=== PATIENT | female | born 1960 | race African-American/Black ===

== ENCOUNTER 2018-12-15 12:03 | Inpatient (IN) ==
[2018-12-15] MEDS ORDERED: Ipratropium/Albuterol Neb 3 ML IH ONE (12:12)
[2018-12-15] MEDS ORDERED: *HR* LORazepam 2 MG/ML VIAL IVP ONE (12:21)
[2018-12-15] MEDS ORDERED: Nitroglycerin 0.4 MG TAB.SUBL SL STA (12:46)
--- NOTE | 2018-12-15 12:47 | Emergency Department Note ---
Disposition Clinical Impression: Congestive heart failure Qualifiers: Heart failure type: unspecified Heart failure chronicity: acute on chronic Qualified Code(s): I50.9 - Heart failure, unspecified Disposition: Admitted As Inpatient Condition: Serious Referrals: NONE,PCP [Primary Care Provider] - Forms: ED Satisfaction Letter SOB HPI - General Chief Complaint: ED Shortness of Breath/Dyspnea Stated Complaint: ABY Time Seen by Provider: 12/15/18 12:08 Source: patient, EMS Nursing Notes Reviewed: Yes Vital Signs Reviewed: Yes - Related Data Home Medications Medication Instructions Recorded Confirmed Esomeprazole Magnesium [Nexium] 40 mg PO BID 05/14/16 10/30/18 Estradiol [Estrace] 1 mg PO DAILY 05/14/16 10/30/18 Furosemide [Lasix] 40 mg PO DAILY 05/14/16 10/30/18 SitaGLIPtin [Januvia] 100 mg PO DAILY #0 05/14/16 10/30/18 Docusate Sodium [Dok] 100 mg PO DAILY 10/30/18 10/30/18 Gabapentin [Neurontin] 600 mg PO TID 10/30/18 10/30/18 GlipiZIDE XL (24 HR) [Glucotrol XL] 10 mg PO DAILY 10/30/18 10/30/18 Losartan Potassium 100 mg PO DAILY 10/30/18 10/30/18 PARoxetine HCl [Paroxetine HCl] 10 mg PO DAILY 10/30/18 10/30/18 Tramadol HCl [Ultram] 100 mg PO TID PRN 10/30/18 10/30/18 Trazodone HCl 100 mg PO HS 10/30/18 10/30/18 Umeclidinium [place] [Incruse 1 puff IH DAILY 10/30/18 10/30/18 Ellipta] Previous Rx's Medication Instructions Recorded Atorvastatin [Lipitor] 40 mg PO HS #30 tablet 05/14/16 Blood Pressure Test Kit [Blood 1 each MC BID #1 kit 11/01/18 Pressure Kit] Clopidogrel [Plavix] 75 mg PO DAILY #30 tablet 11/01/18 Ipratropium/Albuterol Neb [Duoneb] 3 ml IH [id number] #10 inhsol 11/01/18 Nebulizer and Compressor [Ombra 1 each MC PRN PRN #1 each 11/01/18 Compressor System] Allergies Allergy/AdvReac Type Severity Reaction Status Date / Time steroids Allergy See Uncoded 10/30/18 10:48 Comments Past Medical History - Past Medical History Medical history: Reports: diabetes, GERD, hyperlipidemia, hypertension Surgical history: Reports: , cholecystectomy, herniorrhaphy, hysterectomy Psychiatric history: Reports: no psych history - Social History Smoking Status: Former smoker Smokeless Tobacco Status: No Alcohol use: Reports: occasionally Drug use: Reports: none Physical Exam - General General appearance: alert Course Vital Signs Temperature 97.7 F 12/15/18 12:09 Pulse Rate 131 12/15/18 12:09 Respiratory Rate 38 12/15/18 12:09 Blood Pressure 161/123 12/15/18 12:09 O2 Sat by Pulse Oximetry 78 12/15/18 12:09 Temperature 97.7 F 12/15/18 12:09 Pulse Rate 104 12/15/18 16:03 Respiratory Rate 24 12/15/18 16:03 Blood Pressure 148/94 12/15/18 16:03 O2 Sat by Pulse Oximetry 97 12/15/18 16:03 Oxygen Delivery Oxygen Delivery Nasal Cannula Shortness of Breath/Dyspnea - [facility] Narrative Medical decision making narrative: Chest X-Ray 12/15/18 12:11 IMPRESSION: 1. Cardiomegaly with findings most suggestive of pulmonary edema. D/ / Jakub Parra MD / Jakub Parra MD Interpreting Provider: Jakub Parra MD 1400 hrs. placed on Lasix and IV nitroglycerin. She does have cardiomegaly and pulmonary edema. She is more comfortable. Renalin and bring her into the hospital acute exacerbation of CHF with history of CAD. - Lab Data Result diagrams: 12/15/18 12:52 12/15/18 12:52 Lab Results 12/15/18 12/15/18 12/15/18 Range/Units 12:52 12:52 12:52 WBC 11.1 (4.3-11.1) K/mcL RBC 5.54 H (3.82-4.97) M/mcL Hgb 12.9 (11.5-15.4) g/dL Hct 43.1 (35.3-44.9) % MCV 77.8 L (83.0-100.0) fL MCH 23.3 L (28.0-33.3) pg MCHC 29.9 L (31.6-35.5) g/dL RDW 15.8 H (11.5-14.5) % Plt Count 216 (140-400) K/mcL MPV 12.0 (9.4-12.4) fL Immature Gran % 0.3 (0-4) % Seg Neutrophils % 84.1 % Lymphocytes % 12.4 % Monocytes % 2.2 % Eosinophils % 0.7 % Basophils % 0.3 % Neutrophils # 9.3 H (1.6-8.9) K/mcL Lymphocytes # 1.4 (0.6-4.6) K/mcL Monocytes # 0.2 (0.0-1.3) K/mcL Eosinophils # 0.1 (0.0-0.6) K/mcL Basophils # 0.0 (0.0-0.2) K/mcL Sodium 138 (136-145) mEq/L Potassium 4.3 (3.5-5.1) mEq/L Chloride 100 (98-107) mEq/L Carbon Dioxide 24 (23-29) mEq/L BUN 18 (6-20) mg/dL Creatinine 0.94 (0.60-1.20) mg/dL Est GFR ( Amer) > 60 (> 60) Est GFR (Non-Af Amer) > 60 (> 60) BUN/Creatinine Ratio 19 (6-26) Glucose 407 H (70-105) mg/dL Calculated Osmolality 305 H (280-300) Lactic Acid 3.6 H (0.5-2.2) mmol/L Calcium 9.4 (8.6-10.3) mg/dL Magnesium 1.1 L (1.6-2.6) mg/dL Troponin I 0.03 (< 0.04) ng/mL B-Natriuretic Peptide (Less than 100) pg/mL 12/15/18 12/15/18 Range/Units 12:52 15:33 WBC (4.3-11.1) K/mcL RBC (3.82-4.97) M/mcL Hgb (11.5-15.4) g/dL Hct (35.3-44.9) % MCV (83.0-100.0) fL MCH (28.0-33.3) pg MCHC (31.6-35.5) g/dL RDW (11.5-14.5) % Plt Count (140-400) K/mcL MPV (9.4-12.4) fL Immature Gran % (0-4) % Seg Neutrophils % % Lymphocytes % % Monocytes % % Eosinophils % % Basophils % % Neutrophils # (1.6-8.9) K/mcL Lymphocytes # (0.6-4.6) K/mcL Monocytes # (0.0-1.3) K/mcL Eosinophils # (0.0-0.6) K/mcL Basophils # (0.0-0.2) K/mcL Sodium (136-145) mEq/L Potassium (3.5-5.1) mEq/L Chloride (98-107) mEq/L Carbon Dioxide (23-29) mEq/L BUN (6-20) mg/dL Creatinine (0.60-1.20) mg/dL Est GFR ( Amer) (> 60) Est GFR (Non-Af Amer) (> 60) BUN/Creatinine Ratio (6-26) Glucose (70-105) mg/dL Calculated Osmolality (280-300) Lactic Acid 2.3 H (0.5-2.2) mmol/L Calcium (8.6-10.3) mg/dL Magnesium (1.6-2.6) mg/dL Troponin I (< 0.04) ng/mL B-Natriuretic Peptide 529 H (Less than 100) pg/mL Critical Care Time Critical Care Time: Yes Total Critical Care Time: 50 Attestation: Excluding any separately billable procedures. Attestation Statement - Attestation Attestation: This documentation is done with the assistance of Dragon dictation. Despite efforts made to ensure accuracy, there may be inaccuracies in staff consultant or spelling and typographical errors. I examined this patient and my medical decision-making was reviewed with the Resident Physician. I agree with the documented findings, disposition and treatment plan as described except to the extent set forth below. Patient seen and evaluated on arrival with Dr. Altamirano and myself, I agree with his evaluation and management plan, I supervised the care the patient's stay. Patient comes in today with increased shortness of breath and and chest pain. She has had a recent cardiac catheter looks like she is in the process to have another PCI. She follows with cardiology here. She is diaphoretic. Her EKG shows no signs of acute ischemia were going to try to make her more comfortable. She is very anxious somewhat irregular little Ativan for that check labs chest x-ray EKG and reassess. She is in agreement with plan.
[2018-12-15 13:05] LABS: Basophils % 0.3 %; Eosinophils # 0.1 K/mcL (0.0-0.6); Eosinophils % 0.7 %; Hematocrit 43.1 % (35.3-44.9); Hemoglobin 12.9 g/dL (11.5-15.4); Immature Granulocytes % 0.3 % (0-4); Lymphocytes # 1.4 K/mcL (0.6-4.6); Lymphocytes % 12.4 %; Mean Corpuscular HGB Conc 29.9 g/dL (31.6-35.5); Mean Corpuscular Hemoglobin 23.3 pg (28.0-33.3); Mean Corpuscular Volume 77.8 fL (83.0-100.0); Monocytes # 0.2 K/mcL (0.0-1.3); Monocytes % 2.2 %; Neutrophils # 9.3 K/mcL (1.6-8.9); Platelet Count 216 K/mcL (140-400); Red Blood Count 5.54 M/mcL (3.82-4.97); Red Cell Distribution Width 15.8 % (11.5-14.5); Segmented Neutrophils % 84.1 %
[2018-12-15 13:29] LABS: BUN/Creatinine Ratio 19 (6-26); Blood Urea Nitrogen 18 mg/dL (6-20); Calcium 9.4 mg/dL (8.6-10.3); Carbon Dioxide 24 mEq/L (23-29); Chloride 100 mEq/L (98-107); Glucose 407 mg/dL (70-105); Osmolality,Calculated 305 (280-300); Potassium 4.3 mEq/L (3.5-5.1); Sodium 138 mEq/L (136-145); Troponin I 0.03 ng/mL (< 0.04); eGFR For Non-African Americans > 60 (> 60)
[2018-12-15] MEDS: Nitroglycerin 25 MG/250 ML INFUS..BTL IVC SCH ×2 (13:29→22:29)
[2018-12-15] MEDS ORDERED: Furosemide 40 MG/4 ML VIAL IVP ONE ×2 (13:58→14:34)
--- NOTE | 2018-12-15 14:04 | Emergency Department Note ---
Disposition Clinical Impression: Congestive heart failure Qualifiers: Heart failure type: unspecified Heart failure chronicity: acute on chronic Qualified Code(s): I50.9 - Heart failure, unspecified Disposition: Admitted As Inpatient Condition: Serious Referrals: NONE,PCP [Primary Care Provider] - Forms: ED Satisfaction Letter Time of Disposition: 14:08 SOB HPI - General Chief Complaint: ED Shortness of Breath/Dyspnea Stated Complaint: ABY Time Seen by Provider: 12/15/18 12:08 Source: patient, EMS Mode of arrival: EMS Limitations: no limitations Nursing Notes Reviewed: Yes Vital Signs Reviewed: Yes - History of Present Illness Patient presenting to the ED with shortness breath. Patient reports she was in the hospital last month for similar symptoms. States that she was diagnosed with acute congestive heart failure with preserved ejection fraction. She is also found to have severe three-vessel disease and had one stent placed and is supposed to be getting delayed outpatient PCI. Patient reports she has had a return of her difficulty breathing and feels very short of breath again. She denies any fever or chills. EMS reports patient is very anxious and was unable to tolerate oxygen, but her sats were in the 70s. Patient does complain of some chest tightness and pain that is centralized and a heavy pressure. No history of DVT or PE. Denies any abdominal pain, vomiting or diarrhea. No pain in her legs, but she does have chronic swelling. She does report she has been compliant with her Lasix. - Related Data Home Medications Medication Instructions Recorded Confirmed Esomeprazole Magnesium [Nexium] 40 mg PO BID 05/14/16 10/30/18 Estradiol [Estrace] 1 mg PO DAILY 05/14/16 10/30/18 Furosemide [Lasix] 40 mg PO DAILY 05/14/16 10/30/18 SitaGLIPtin [Januvia] 100 mg PO DAILY #0 05/14/16 10/30/18 Docusate Sodium [Dok] 100 mg PO DAILY 10/30/18 10/30/18 Gabapentin [Neurontin] 600 mg PO TID 10/30/18 10/30/18 GlipiZIDE XL (24 HR) [Glucotrol XL] 10 mg PO DAILY 10/30/18 10/30/18 Losartan Potassium 100 mg PO DAILY 10/30/18 10/30/18 PARoxetine HCl [Paroxetine HCl] 10 mg PO DAILY 10/30/18 10/30/18 Tramadol HCl [Ultram] 100 mg PO TID PRN 10/30/18 10/30/18 Trazodone HCl 100 mg PO HS 10/30/18 10/30/18 Umeclidinium [place] [Incruse 1 puff IH DAILY 10/30/18 10/30/18 Ellipta] Previous Rx's Medication Instructions Recorded Atorvastatin [Lipitor] 40 mg PO HS #30 tablet 05/14/16 Blood Pressure Test Kit [Blood 1 each MC BID #1 kit 11/01/18 Pressure Kit] Clopidogrel [Plavix] 75 mg PO DAILY #30 tablet 11/01/18 Ipratropium/Albuterol Neb [Duoneb] 3 ml IH [id number] #10 inhsol 11/01/18 Nebulizer and Compressor [Ombra 1 each MC PRN PRN #1 each 11/01/18 Compressor System] Allergies Allergy/AdvReac Type Severity Reaction Status Date / Time steroids Allergy See Uncoded 10/30/18 10:48 Comments Review of Systems: As reviewed in the HPI. All other systems reviewed are negative or normal. Past Medical History - Past Medical History Attestation: Yes The following information was validated with the patient. Source: patient Medical history: Reports: diabetes, GERD, hyperlipidemia, hypertension Surgical history: Reports: , cholecystectomy, herniorrhaphy, hysterectomy Psychiatric history: Reports: no psych history - Social History Smoking Status: Former smoker Smokeless Tobacco Status: No Alcohol use: Reports: occasionally Drug use: Reports: none Physical Exam CONSTITUTIONAL: [ill appearing, alert and in acute distress] EYES: [EOMI, clear conjunctiva, PERRLA] HENT: [Normocephalic, atraumatic, moist mucus membranes, normal oropharynx] NECK: [normal inspection, full ROM, trachea midline, no obvious swelling] PULMONARY: [Rales bilaterally, end expiratory wheezing, suspect pulmonary edema, moderate respiratory distress CARDIOVASCULAR: [regular rate, regular rhythm, normal heart sounds, no murmurs, distal extremities are warm and well perfused] GASTROINSTESTINAL: [soft, non-tender, non-rigid, non-distended, no guarding, no rebound, normal bowel sounds] GENITOURINARY/RECTAL: [deferred] NEUROLOGIC: [Alert, oriented x3, normal speech, moves all extremities] EXTREMITIES: [Normal inspection, full ROM, no tenderness, no pedal edema, normal capillary refill] MUSCULOSKELETAL: [no gross deformities, atraumatic] SKIN: [No cyanosis, moderate diaphoresis, normal color, cold, but the patient was found sitting outside, no rash] PSYCHIATRIC: [Extremely anxious] - General General appearance: alert Course Course Narrative: Patient responded very well to the nitroglycerin. We will also give her dose Lasix. Her heart rate is improving. Her mental status is definitely improved. We will admit to the hospitalist service for further management. Vital Signs Temperature 97.7 F 12/15/18 12:09 Pulse Rate 131 12/15/18 12:09 Respiratory Rate 38 12/15/18 12:09 Blood Pressure 161/123 12/15/18 12:09 O2 Sat by Pulse Oximetry 78 12/15/18 12:09 Temperature 97.7 F 12/15/18 12:09 Pulse Rate 110 12/15/18 13:12 Respiratory Rate 28 12/15/18 13:12 Blood Pressure 151/93 12/15/18 13:12 O2 Sat by Pulse Oximetry 94 12/15/18 13:12 Oxygen Delivery Oxygen Delivery Nasal Cannula Shortness of Breath/Dyspnea - Medical Records Medical records reviewed: Yes I reviewed the patient's medical records. - Lab Data Lab results reviewed: Yes I reviewed the patient's lab results. Result diagrams: 12/15/18 12:52 12/15/18 12:52 Lab Results 12/15/18 12/15/18 12/15/18 Range/Units 12:52 12:52 12:52 WBC 11.1 (4.3-11.1) K/mcL RBC 5.54 H (3.82-4.97) M/mcL Hgb 12.9 (11.5-15.4) g/dL Hct 43.1 (35.3-44.9) % MCV 77.8 L (83.0-100.0) fL MCH 23.3 L (28.0-33.3) pg MCHC 29.9 L (31.6-35.5) g/dL RDW 15.8 H (11.5-14.5) % Plt Count 216 (140-400) K/mcL MPV 12.0 (9.4-12.4) fL Immature Gran % 0.3 (0-4) % Seg Neutrophils % 84.1 % Lymphocytes % 12.4 % Monocytes % 2.2 % Eosinophils % 0.7 % Basophils % 0.3 % Neutrophils # 9.3 H (1.6-8.9) K/mcL Lymphocytes # 1.4 (0.6-4.6) K/mcL Monocytes # 0.2 (0.0-1.3) K/mcL Eosinophils # 0.1 (0.0-0.6) K/mcL Basophils # 0.0 (0.0-0.2) K/mcL Sodium 138 (136-145) mEq/L Potassium 4.3 (3.5-5.1) mEq/L Chloride 100 (98-107) mEq/L Carbon Dioxide 24 (23-29) mEq/L BUN 18 (6-20) mg/dL Creatinine 0.94 (0.60-1.20) mg/dL Est GFR ( Amer) > 60 (> 60) Est GFR (Non-Af Amer) > 60 (> 60) BUN/Creatinine Ratio 19 (6-26) Glucose 407 H (70-105) mg/dL Calculated Osmolality 305 H (280-300) Lactic Acid 3.6 H (0.5-2.2) mmol/L Calcium 9.4 (8.6-10.3) mg/dL Troponin I 0.03 (< 0.04) ng/mL B-Natriuretic Peptide (Less than 100) pg/mL 12/15/18 Range/Units 12:52 WBC (4.3-11.1) K/mcL RBC (3.82-4.97) M/mcL Hgb (11.5-15.4) g/dL Hct (35.3-44.9) % MCV (83.0-100.0) fL MCH (28.0-33.3) pg MCHC (31.6-35.5) g/dL RDW (11.5-14.5) % Plt Count (140-400) K/mcL MPV (9.4-12.4) fL Immature Gran % (0-4) % Seg Neutrophils % % Lymphocytes % % Monocytes % % Eosinophils % % Basophils % % Neutrophils # (1.6-8.9) K/mcL Lymphocytes # (0.6-4.6) K/mcL Monocytes # (0.0-1.3) K/mcL Eosinophils # (0.0-0.6) K/mcL Basophils # (0.0-0.2) K/mcL Sodium (136-145) mEq/L Potassium (3.5-5.1) mEq/L Chloride (98-107) mEq/L Carbon Dioxide (23-29) mEq/L BUN (6-20) mg/dL Creatinine (0.60-1.20) mg/dL Est GFR ( Amer) (> 60) Est GFR (Non-Af Amer) (> 60) BUN/Creatinine Ratio (6-26) Glucose (70-105) mg/dL Calculated Osmolality (280-300) Lactic Acid (0.5-2.2) mmol/L Calcium (8.6-10.3) mg/dL Troponin I (< 0.04) ng/mL B-Natriuretic Peptide 529 H (Less than 100) pg/mL - Radiology Data Radiology results reviewed: Yes I reviewed the patient's radiology results. - EKG Data EKG attestation: Yes I reviewed and interpreted this EKG. EKG results narrative: Sinus tach, rate 127, normal axis, no acute ischemic change Critical Care Time Critical Care Time: Yes Total Critical Care Time: 35 Attestation: I personally spent ___35___ [facility] the [facility] This time excludes the time for billable procedures.
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
[2018-12-15] MEDS ORDERED: Acetaminophen 325 MG TABLET PO PRN (14:31)
[2018-12-15 14:59] LABS: Magnesium 1.1 mg/dL (1.6-2.6)
[2018-12-15] MEDS ORDERED: *HR* Dextrose 50 % in Water (Syg) 50 ML SYRINGE IVP PRN (15:13)
[2018-12-15] MEDS ORDERED: Dextrose 4 GM Chewable Tablets PO PRN ×2 (15:13)
[2018-12-15] MEDS ORDERED: Dextrose Gel 15 GM/37.5 ML TUBE PO PRN ×2 (15:13)
[2018-12-15] MEDS ORDERED: D5% in Water 1,000 ML IVC PRN (15:13)
[2018-12-15] MEDS: Insulin LISPRO 300 UNITS/3 ML VIAL SQ SCH ×2 (18:56→20:37)
[2018-12-15] MEDS: Insulin DETEMIR 100 UNIT/ML X5UNITS SQ SCH (20:36)
[2018-12-16] MEDS ORDERED: Acetaminophen 325 MG TABLET PO SCH (01:15)
[2018-12-16] MEDS: Acetaminophen 325 MG TABLET PO PRN ×2 (01:26→06:32)
[2018-12-16 05:16] LABS: Hematocrit 36.6 % (35.3-44.9); Mean Corpuscular HGB Conc 30.3 g/dL (31.6-35.5); Mean Corpuscular Hemoglobin 22.7 pg (28.0-33.3); Mean Platelet Volume 12.3 fL (9.4-12.4); Platelet Count 199 K/mcL (140-400); Red Blood Count 4.88 M/mcL (3.82-4.97); Red Cell Distribution Width 15.4 % (11.5-14.5)
[2018-12-16 05:18] LABS: Hemoglobin 11.1 g/dL (11.5-15.4)
[2018-12-16 05:56] LABS: Alanine Aminotransferase 29 Units/L (7-52); Albumin 3.4 g/dL (3.5-5.7); Albumin/Globulin Ratio 1.2 (1.1-2.2); Alkaline Phosphatase 98 Units/L (34-104); Aspartate Amino Transferase 23 Units/L (13-39); BUN/Creatinine Ratio 22 (6-26); Bilirubin,Direct 0.1 mg/dL (0.0-0.2); Bilirubin,Indirect 0.3 mg/dL (0.0-1.2); Bilirubin,Total 0.4 mg/dL (0.3-1.0); Blood Urea Nitrogen 20 mg/dL (6-20); Calcium 9.2 mg/dL (8.6-10.3); Carbon Dioxide 27 mEq/L (23-29); Chloride 101 mEq/L (98-107); Globulin 2.9 g/dL (2.4-3.5); Glucose 155 mg/dL (70-105); Osmolality,Calculated 300 (280-300); Potassium 3.6 mEq/L (3.5-5.1); Sodium 142 mEq/L (136-145); Total Protein 6.3 g/dL (6.4-8.9); eGFR For Non-African Americans > 60 (> 60)
[2018-12-16 06:02] LABS: Troponin I 0.08 ng/mL (< 0.04)
[2018-12-16] MEDS: Nitroglycerin 25 MG/250 ML INFUS..BTL IVC SCH (06:24)
--- NOTE | 2018-12-16 07:21 | Internal Med Progress Note ---
Hospitalist Progress Note - Encounter Date of Encounter: 12/16/18 Time of Encounter: 07:20 - Subjective Interval History: Pt still on nitro gtt and not having any chest pain, and states her SOB improved to where she was able to sleep lying on just one pillow last night. Does have questions about why she is short of breath, and has poor health literacy. Initial attempt by myself and cardiology to explain CHF resulted in patient being tearful, worried she is having a heart attack. Per Cardio will consider [facility] for later today. - Exam Vitals: Temp Pulse Resp BP Pulse Ox 98.1 F 98 16 143/99 92 12/16/18 04:06 12/16/18 04:06 12/16/18 04:06 12/16/18 04:06 12/16/18 04:06 Exam: General: good eye contact, no respiratory distress Thoracic: bibasilar inspiratory crackles Cardio: Normal S1 and S2, regular rate and rhythm, no murmurs. Abdomen: Soft, nontender, morbidly obese Extremities: Warm, well perfused. DP pulses 2+ b/l. Does have pitting edema in b/l LE, none in thighs Skin: Intact. No rashes, bruises, or ulcers Neuro: Awake, fully oriented. Speech fluent. Able to ambulate. - Assessment and Plan (1) Acute on chronic combined systolic (congestive) and diastolic (congestive) heart failure Current Visit: Yes Status: Acute - Summary of Assessment and Plan Summary of Assessment and Plan: Dania Loza is a 58 F w hx multi-vessel CAD, HFrEF 45-50%, HTN, HLD, DM2, GERD, morbid obesity, who p/w SOB and CP, pedal edema, elevated BNP, and CXR with bilateral diffuse infiltrates, suggestive of acute pulmonary edema and acute on chronic combined heart failure. Acute on Chronic Systolic and Diastolic HF, LVEF 45% on nuclear stress ', likely 2/2 ICM: c/b acute pulmonary edema, improved w nitro in ED, ECG and trops unremarkable, unknown etiology - Diuresis: Lasix 80 iv bid (home dose is lasix 40 po daily) - d/c nitro gtt and initiate imdur - GDMT: hold BB in acute exacerbation, continue losartan 100 Demand ischemia: trop elevated likely 2/2 severe hypoxia from pulmonary edema in context of known multivessel disease - Cardio consultation, appreciate co-management, initial plan to pursue [facility] deferred after review of previous films by Cardio attending, will optimize medically Acute hypoxic respiratory failure: requiring 2L O2 to maintain sats >88% - supplemental O2, wean as able - IS - treat cause as above - walk test prior to discharge Lactic acidemia: resolved DM2: w hyperglycemia, holding oral meds, continue inpatient Levemir and SSI HTN: uncontrolled, losartan and imdur and diuresis as above CAD/HLD: home ASA, plavix, statin, BB and ARB as above Depression: home paxil and trazodone Morbid obesity: BMI 53 PPx: lovenox FEN: cardiac 2L, no MIVF Lines: PIV Consults: Cardio Code: Full Dispo: patient requires inpatient eval and management at this time. Anticipate 3-4 days. Will be homegoing - Time Spent with Patient Total time spent is greater than 50% in coordination of care (as documented) at patient's floor/unit and/or counseling patient: Internal Medicine: Result - Labs CBC & Chem 7: 12/16/18 04:55 12/16/18 04:55 Labs: Short CBC 12/15/18 12/16/18 Range/Units 12:52 04:55 WBC 11.1 11.7 H (4.3-11.1) K/mcL Hgb 12.9 11.1 L D (11.5-15.4) g/dL Hct 43.1 36.6 (35.3-44.9) % Plt Count 216 199 (140-400) K/mcL Neutrophils # 9.3 H (1.6-8.9) K/mcL BMP 12/15/18 12/16/18 12:52 04:55 Sodium 138 142 Potassium 4.3 3.6 Chloride 100 101 Carbon Dioxide 24 27 BUN 18 20 Creatinine 0.94 0.90 Glucose 407 H 155 H Calcium 9.4 9.2 Cardiac Enzymes 12/15/18 12/16/18 Range/Units 12:52 04:55 Troponin I 0.03 0.08 H* (< 0.04) ng/mL Liver Function 12/16/18 Range/Units 04:55 Total Bilirubin 0.4 (0.3-1.0) mg/dL Direct Bilirubin 0.1 (0.0-0.2) mg/dL AST 23 (13-39) Units/L ALT 29 (7-52) Units/L Alkaline Phosphatase 98 (34-104) Units/L Albumin 3.4 L (3.5-5.7) g/dL - Impressions Impressions Chest X-Ray 12/15/18 12:11 IMPRESSION: 1. Cardiomegaly with findings most suggestive of pulmonary edema. D/ / Jakub Parra MD / Jakub Parra MD Interpreting Provider: Jakub Parra MD Consult Discharge Plan - Plan Referrals: Michelle Silveira [Resident] - 12/22/18 10:20 am Edwige Woods [Partnered Physician] - (Office will call patient at home with follow up appointment)
[2018-12-16] MEDS ORDERED: Furosemide 40 MG/4 ML VIAL IVP SCH (07:30)
[2018-12-16] MEDS: Insulin LISPRO 300 UNITS/3 ML VIAL SQ SCH ×4 (07:58→21:28)
[2018-12-16] MEDS: Furosemide 40 MG/4 ML VIAL IVP SCH ×2 (08:13→17:30)
--- NOTE | 2018-12-16 08:26 | Electrocardiograph Report ---
[place] Test Date: 2018-12-15 Pat Name: Dania Loza Department: [id number] Room: 2N14 Gender: F Regional Account Executive: : 1960 Requested By: Abdon Altamirano Order Number: [id number] Reading MD: Bill Galeano Measurements Intervals [place] Rate: 127 P: 57 NE: 147 QRS: 46 QRSD: 86 T: 92 QT: 317 QTc: 461 Interpretive Statements Sinus tachycardia Nonspecific T abnormalities, lateral leads Electronically Signed On 12-16-2018 8:24:43 EST by Bill Galeano
--- NOTE | 2018-12-16 08:39 | Cardiology Consult Note ---
<Marquise Valencia - Last Filed: 12/16/18 09:52> Date of Encounter: 12/16/18 Time of Encounter: 08:40 Assessment and Plan (1) Congestive heart failure Current Visit: Yes Status: Acute Per Cardiology: BNP in the 500s. Chest x-ray showing pulmonary edema. Takes Lasix 40 mg by mouth daily at home. Has hx of moderate diastolic dysfxn. Already on IV Lasix 80 mg twice a day per primary service. We will add strict I&O and daily weights. Recommend fluid restriction. According to I&O net negative 1.8 L. Echo from 10/2018: Impressions: Technically sub-optimal due to body habitus. Definity echo contrast was used. LVEF 55%. LV chamber size upper limits of normal. Moderate left ventricular diastolic dysfunction. RV is not well evaluated. No appreciable valve dysfunction. Unable to estimate RVSP due to lack of optimal TR signal. Left Ventricular Wall Motion: Rest Echo Findings All wall segments showed normal motion. Qualifiers: Heart failure type: unspecified Heart failure chronicity: acute on chronic Qualified Code(s): I50.9 - Heart failure, unspecified (2) Elevated troponin Current Visit: No Status: Acute Per Cardiology: Has past history of mild troponin elevations with peak of 0.07 in 2015; peak of 0.06 10/2018. Initial troponin negative subsequent troponin mild elevation 0.08 in setting of CHF/volume overload. Chest pain-free. Suspect type II demand i schemia. Cardiac rehab c/s placed. (3) CAD (coronary artery disease) Current Visit: No Status: Chronic Per Cardiology: Known hx of CAD. Last [facility] 10/2018: Impressions: There is severe three vessel coronary artery disease. Patient had successful PTCA/Drug-Eluting Stent placement in the mid Circ. Coronary Dominance: right Lesion Findings/Interventions * Left Main Coronary Artery The LMCA is angiographically free of disease. * Left Anterior Descending There is a 50% stenosis in the Proximal LAD. There is a 90% stenosis in the 1st Diagonal. Leison is noted to be long and at the bifurcation * Circumflex There is a 50% stenosis in the Proximal Circumflex. There is a 70% stenosis in the Mid Circumflex. The lesion has a VERONIQUE flow of 3. An intervention was performed on the Mid Circumflex with a final stenosis of 0%. There were no lesion complications. The final VERONIQUE flow was 3. * Ramus There is a 40% stenosis in the Ramus. * Right Coronary Artery There is a 65% stenosis in the Proximal RCA. There is a 60% stenosis in the Mid RCA. There is a 90% stenosis in the Distal RCA. CP free. On NTG gtt-- will attempt to wean, appears was not started for CP (concerns for flash pulm edema); clinically stable. Resume home meds of aspirin, Plavix, and a damien, ARB, and statin-- recent LFT stable, will maximize dose of statin due to her CAD. Recommendations for left heart catheterization per discussion with Dr. Cordon. Will review cath film from last month with Dr. Theresa Velazquez. Qualifiers: Coronary Disease-Associated Artery/Lesion type: [place] artery [place] vs. transplanted heart: [place] heart Associated angina: angina presence unspecified Qualified Code(s): I25.10 - Atherosclerotic heart disease of [place] coronary artery without angina pectoris Discussion w patient/family: The assessment and plan as outlined above was discussed with the patient and/or family members who expressed understanding and agreement. All questions were answered. Thank you for involving us in the care of your patient. Please call with any questions. History of Present Illness Consult date: 12/16/18 Requesting physician: Jared Dumas Consult reason: SOB Chief complaint: SOB History of present illness: Dania Loza is a 58 yo AA female with PMH of CAD, HTN, HLD, DM2, GERD, morbid obesity, and past history of nicotine abuse. Cardiology consult for shortness of breath, CHF, troponin elevation. Patient reports seen by her office communication professor Dr. Woods this past Saturday. She reports over the past one week increased shortness of breath at rest and with exertion. She reports symptoms continued to worsen over the weekend and ye sterday developed episode where she "was struggling to breathe and thought she was going to and called for help and someone called 911". She denies any chest pain symptoms. She reports shortness of breath improved currently. Patient reports she is unsure if it was anxiety or her shortness of breath causing symptoms. She denied any palpitations, dizziness, syncope, falls. She reports occasional cough with yellow sputum, however unchanged and baseline for her. Denies any recent infectious process. She does not utilize oxygen at home. Reports past history of smoking and quit in 2017. She reports compliance with medications except apparently was running low on her carvedilol ands was only taking once a day the past week. She denies any edema. Denies any active bleeding or blood loss. Past Med Surg Social Fam HX - Past Medical History Attestation: Yes The following information was validated with the patient. Source: patient, old records reviewed Medical history: diabetes, GERD, hyperlipidemia, hypertension Additional medical history: Pts states she does not have COPD but noted diagnosis. Psychiatric history: anxiety - Past Surgical History Surgical History: , cholecystectomy, herniorrhaphy, hysterectomy Additional surgical history: stent and carpal tunnel sx - Social History Smoking Status: Former smoker (Quit in 2016) Smokeless Tobacco Status: No Alcohol use: occasionally Drug use: none - Family History Mother Living Status: Hx Family Cardiac Disorders: Yes Father Living Status: Hx Family Cardiac Disorders: Yes Medications and Allergies Atorvastatin [Lipitor] 40 mg PO HS #30 tablet 05/14/16 [Rx] Esomeprazole Magnesium [Nexium] 40 mg PO DAILY 05/14/16 [History] Estradiol [Estrace] 1 mg PO DAILY 05/14/16 [History] Furosemide [Lasix] 40 mg PO DAILY 05/14/16 [History] SitaGLIPtin [Januvia] 100 mg PO DAILY #0 05/14/16 [History] Docusate Sodium [Dok] 100 mg PO DAILY 10/30/18 [History] Gabapentin [Neurontin] 600 mg PO TID 10/30/18 [History] GlipiZIDE XL (24 HR) [Glucotrol XL] 10 mg PO DAILY 10/30/18 [History] Losartan Potassium 100 mg PO DAILY 10/30/18 [History] PARoxetine HCl [Paroxetine HCl] 10 mg PO DAILY 10/30/18 [History] Tramadol HCl [Ultram] 100 mg PO TID PRN 10/30/18 [History] Trazodone HCl 100 mg PO HS 10/30/18 [History] Umeclidinium [place] [Incruse Ellipta] 1 puff IH DAILY 10/30/18 [History] Blood Pressure Test Kit [Blood Pressure Kit] 1 each BID #1 kit 11/01/18 [Rx] Clopidogrel [Plavix] 75 mg PO DAILY #30 tablet 11/01/18 [Rx] Ipratropium/Albuterol Neb [Duoneb] 3 ml IH [id number] #10 inhsol 11/01/18 [Rx] Nebulizer and Compressor [Ombra Compressor System] 1 each PRN PRN #1 each 11/01/18 [Rx] Aspirin [Lo-Dose Aspirin EC] 81 mg PO DAILY 12/16/18 [History] Carvedilol [Coreg] 25 mg PO BIDWM 12/16/18 [History] Losartan Potassium [Cozaar] 100 mg PO DAILY 12/16/18 [History] Allergy/AdvReac Type Severity Reaction Status Date / Time steroids Allergy See Uncoded 10/30/18 10:48 Comments All Systems Review: The remainder of the systems were reviewed and are negative - Cardiovascular Cardiovascular: as per HPI, dyspnea at rest, dyspnea on exertion - Psychiatric Psychiatric: anxiety Physical Examination Vital Signs, Last 4 Hours Temp Pulse Resp BP Pulse Ox 12/16/18 07:15 97.9 F 96 19 157/83 97 12/16/18 07:00 96 168/99 12/16/18 06:00 100 159/110 12/16/18 05:00 91 138/85 General: Conversant, No Apparent Distress, Other (Anxious, smoewhat tearful at times) HEENT: Atraumatic, Normocephaly, Mucus Membranes Moist Neck: No JVD, Normal carotid pulses Cardiac: Reg Rate and Rhythm, Normal S1 and S2, No Murmur Lungs: Normal Breath Sounds, No Wheeze, Rales, Rhonchi, Other (diminished breath sounds throughout) Neuro: Alert and responsive, No focal deficits noted Abdomen: Soft, Non-Tender Skin: No rashes noted on visualized skin Musculoskeletal: No Chest Wall Tenderness Extremities: No Clubbing, No Cyanosis, Normal Pulses, Other (+1 pitting edema to bilateral lower extremities; left slightly greater than right) Results 12/16/18 04:55 12/16/18 04:55 Lab Results Laboratory Tests 12/15/18 12/15/18 12/16/18 12:52 12:52 04:55 WBC 11.7 H Hgb 11.1 L D Hct 36.6 Creatinine Est GFR (Non-Af Amer) AST ALT Troponin I 0.03 B-Natriuretic Peptide 529 H 12/16/18 04:55 WBC Hgb Hct Creatinine 0.90 Est GFR (Non-Af Amer) > 60 AST 23 ALT 29 Troponin I 0.08 H* B-Natriuretic Peptide Laboratory Tests 12/16/18 04:55 AST 23 ALT 29 ITS Impressions Chest X-Ray 12/15/18 12:11 IMPRESSION: 1. Cardiomegaly with findings most suggestive of pulmonary edema. D/ / Jakub Parra MD / Jakub Parra MD Interpreting Provider: Jakub Parra MD Active Medications Acetaminophen (Tylenol) 650 mg PO Q4HR PRN PRN Reason: Mild Pain Stop: 06/17/19 01:16 Last Admin: 12/16/18 06:32 Dose: 650 mg Dextrose (Glucose Tablets) 16 gm PO ONCE PRN PRN Reason: Hypoglycemia Stop: 06/16/19 15:14 Dextrose (Glucose Tablets) 28 gm PO ONCE PRN PRN Reason: Hypoglycemia Stop: 06/16/19 15:14 Dextrose/Water (Dextrose 50% (Syg)) 25 ml IVP AD PRN PRN Reason: Hypoglycemia Stop: 06/16/19 15:14 Furosemide (Lasix) 80 mg IVP BIDDIURETIC SERGIO Stop: 06/17/19 08:01 Last Admin: 12/16/18 08:13 Dose: 80 mg Glucagon (Glucagen) 1 mg IM ONCE PRN PRN Reason: Hypoglycemia Stop: 06/16/19 15:14 Glucose (Gluctose) 15 gm PO ONCE PRN PRN Reason: Hypoglycemia Stop: 06/16/19 15:14 Glucose (Gluctose) 30 gm PO ONCE PRN PRN Reason: Hypoglycemia Stop: 06/16/19 15:14 Nitroglycerin (Nitroglycerin Premix 25 Mg/250 Ml) 25 mg in 250 mls @ 30 mls/hr IVC .Q8H20M SERGIO; Protocol Stop: 06/16/19 12:46 Last Admin: 12/16/18 06:24 Dose: 50 mcg/min, 30 mls/hr Dextrose (Dextrose 5%) 1,000 mls @ 100 mls/hr IVC .Q10H PRN PRN Reason: HYPOGLYCEMIA Stop: 06/16/19 15:14 Magnesium Sulfate 2 gm/ Sodium (Chloride) 104 mls @ 104 mls/hr IVPB Q1H SERGIO Stop: 12/16/18 09:14 Last Admin: 12/16/18 08:13 Dose: 104 mls/hr Insulin Detemir (Levemir) 20 unit 0.15 unit/kg (20 unit) SQ HS [facility] Stop: 06/16/19 21:01 Last Admin: 12/15/18 20:36 Dose: 20 unit Insulin Human Lispro (Humalog) 0 units SQ HS [facility]; Protocol Stop: 06/16/19 21:01 Last Admin: 12/15/18 20:37 Dose: Not Given Insulin Human Lispro (Humalog) 0 units SQ TIDAC [facility]; Protocol Stop: 06/16/19 16:31 Last Admin: 12/16/18 07:58 Dose: Not Given - Imaging and Cardiology Echo: report reviewed Cardiac cath: report reviewed - EKG Interpretation EKG results cardiology: personally reviewed (Sinus tachycardia 120's with nonspecific changes) Consult Discharge Plan - Plan Referrals: Michelle Silveira [Resident] - 12/22/18 10:20 am Edwige Woods [Partnered Physician] - (Office will call patient at home with follow up appointment) <Lazaro Cordon A - Last Filed: 12/16/18 17:13> Date of Encounter: 12/16/18 - Attending Attestation I have personally performed a face to face evaluation on this patient. I have reviewed and agree with the documented findings and care plan as documented by the SOAKER HELPER. History and Exam by me shows: 58-year-old diabetic female with history of coronary artery disease admitted for acute diastolic CHF exacerbation and mild chest discomforts. Minimal troponin elevation. I agree with optimizing medical management given diffuse small vessels' disease on recent cardiac catheterization. Thanks, Lazaro Cordon MD FAC Assessment and Plan Discussion w patient/family: The assessment and plan as outlined above was discussed with the patient and/or family members who expressed understanding and agreement. All questions were answered. Thank you for involving us in the care of your patient. Please call with any questions. History of Present Illness History of present illness: Ms. Loza is a 58 year old female All Systems Review: The remainder of the systems were reviewed and are negative Physical Examination Vital Signs, Last 4 Hours Temp Pulse Resp BP Pulse Ox 12/16/18 08:20 92 161/108 95 12/16/18 07:15 97.9 F 98 19 157/83 97 12/16/18 07:00 96 168/99 Results 12/16/18 04:55 12/16/18 04:55 Lab Results 12/15/18 12/15/18 12/15/18 12:52 12:52 12:52 WBC 11.1 Hgb 12.9 Hct 43.1 Plt Count 216 Sodium 138 Potassium 4.3 Chloride 100 Carbon Dioxide 24 BUN 18 Creatinine 0.94 Glucose 407 H Calcium 9.4 Magnesium 1.1 L Total Bilirubin AST ALT Alkaline Phosphatase Troponin I 0.03 B-Natriuretic Peptide 529 H 12/16/18 12/16/18 04:55 04:55 WBC 11.7 H Hgb 11.1 L D Hct 36.6 Plt Count 199 Sodium 142 Potassium 3.6 Chloride 101 Carbon Dioxide 27 BUN 20 Creatinine 0.90 Glucose 155 H Calcium 9.2 Magnesium 1.0 L Total Bilirubin 0.4 AST 23 ALT 29 Alkaline Phosphatase 98 Troponin I 0.08 H* B-Natriuretic Peptide
[2018-12-16] MEDS ORDERED: traMADol 50 MG TABLET PO PRN (10:32)
--- NOTE | 2018-12-16 11:18 | Event Note ---
Date of Encounter: 12/16/18 Time of Encounter: 11:15 - Cardiology Event Note Previous catheter films were reviewed by Dr. Theresa Velazquez with recommendations for optimizing medical management. Has small vessel disease. Discussed reviewed with patient and she is agreeable. We will initiate Imdur 30mg PO daily, will discontinue IV nitroglycerin drip. Continue with diuresis for now. Cardiology signing off, reconsult as needed, follow-up arranged. All questions answered. Discussed with Dr. Cordon.
[2018-12-16] MEDS: Aspirin 81 MG TAB.CHEW PO SCH (12:02)
[2018-12-16] MEDS: Isosorbide MONOnitrate (24 HR) 30 MG TAB.ER.24H PO SCH (12:02)
[2018-12-16] MEDS: Gabapentin 300 MG CAPSULE PO SCH ×2 (14:38→21:01)
--- NOTE | 2018-12-16 18:36 | Electrocardiograph Report ---
[address] [place], [place] [address] Test Date: 2018-12-16 Pat Name: Dania Loza Department: 110 Room: 2N14 Gender: F Dental Hygiene Administrative Assistant: JOAQUIN : 1960 Requested By: Leigh Isbell Order Number: [id number] Reading MD: Theresa Velazquez Measurements Intervals [place] Rate: 95 P: 49 [place]: 136 QRS: 21 QRSD: 90 T: 111 QT: 378 QTc: 431 Interpretive Statements SINUS RHYTHM MODERATE T-WAVE ABNORMALITY, CONSIDER ANTERIOR ISCHEMIA Electronically Signed On 12-16-2018 18:34:31 EST by Theresa Velazquez
[2018-12-16] MEDS: Insulin DETEMIR 100 UNIT/ML X5UNITS SQ SCH (21:01)
[2018-12-17 06:02] LABS: Hematocrit 36.9 % (35.3-44.9); Hemoglobin 11.1 g/dL (11.5-15.4); Mean Corpuscular HGB Conc 30.1 g/dL (31.6-35.5); Mean Corpuscular Volume 76.6 fL (83.0-100.0); Mean Platelet Volume 11.2 fL (9.4-12.4); Platelet Count 176 K/mcL (140-400); Red Blood Count 4.82 M/mcL (3.82-4.97); Red Cell Distribution Width 15.6 % (11.5-14.5)
[2018-12-17 06:12] LABS: BUN/Creatinine Ratio 21 (6-26); Blood Urea Nitrogen 18 mg/dL (6-20); Calcium 9.5 mg/dL (8.6-10.3); Carbon Dioxide 30 mEq/L (23-29); Chloride 103 mEq/L (98-107); Glucose 141 mg/dL (70-105); Magnesium 1.6 mg/dL (1.6-2.6); Osmolality,Calculated 298 (280-300); Potassium 3.9 mEq/L (3.5-5.1); Sodium 142 mEq/L (136-145); eGFR For Non-African Americans > 60 (> 60)
[2018-12-17] MEDS: Insulin LISPRO 300 UNITS/3 ML VIAL SQ SCH ×4 (07:39→20:04)
[2018-12-17] MEDS: Furosemide 40 MG/4 ML VIAL IVP SCH ×2 (09:23→15:56)
[2018-12-17] MEDS: Aspirin 81 MG TAB.CHEW PO SCH (09:24)
[2018-12-17] MEDS: Isosorbide MONOnitrate (24 HR) 30 MG TAB.ER.24H PO SCH (09:24)
[2018-12-17] MEDS: Gabapentin 300 MG CAPSULE PO SCH ×3 (09:24→20:10)
[2018-12-17] MEDS: traMADol 50 MG TABLET PO PRN (09:30)
[2018-12-17] MEDS: Insulin DETEMIR 100 UNIT/ML X5UNITS SQ SCH (20:10)
[2018-12-17] MEDS: ALPRAZolam 0.5 MG TABLET PO SCH (20:10)
--- NOTE | 2018-12-18 05:16 | Internal Med Progress Note ---
Hospitalist Progress Note - Encounter Date of Encounter: 12/17/18 Time of Encounter: 19:00 - Subjective Interval History: SUBJECTIVE: The patient feels pretty good. Her resting dyspnea subsided; she is on room air oxygen. Denies chest pain. Denies abdominal pain, nausea and vomiting. She makes fair amounts of urine; her swelling of the legs has decreased someremains moderate. OBJECTIVE: Skin: Free of rash and discoloration. ENMT: Oral/pharyngeal mucosa is normal in appearance. Eyes: Sclera is white. There is no discharge from eyes. Respiratory: Normal breath sounds; no crackles or wheezes. CV: Heart is regular; no gallop or murmur. There is moderate swelling of her lower legs/feet. GI: Abdomen is soft and not tender. There is no palpable mass or visceromegaly. Neuro: There is no focal deficits. ADDITIONAL DATA: She has normal CBC. BMP shows sodium of 142 with potassium of 3.9. Creatinine is 0.87. Magnesium is 1.6. Echocardiogram from October 2018 showed ejection fraction of 55% with moderate diastolic dysfunction. Cardiac catheterization from October 2018 showed a severe three-vessel coronary artery disease. The patient had successful PTCA/drug-eluting stent placement in the mid circumflex. ASSESSMENT AND PLAN: Acute on chronic diastolic heart failure. In a patient with severe coronary artery disease. Admitted with chest paintroponin of 0.07 and 0.06. Likely representing demand ischemia. See cardiology notes. I will switch her from IV Lasix to combination of her Zaroxolyn and Demadex. She will continue mild fluid restriction. The treatment for her coronary artery disease has been optimized. Type 2 diabetes mellitus with hypertension and hyperlipidemia. To continue diabetic diet with Levemir and when necessary Humalog. To continue Coreg, Hyzaar and Lipitor. DISPOSITION: Tentative discharge is tomorrow, assuming that she makes good amounts of urine on combination of Zaroxolyn and Demadex. - Exam Vitals: Temp Pulse Resp BP Pulse Ox 98.2 F 87 16 127/71 96 12/18/18 04:09 12/18/18 04:09 12/18/18 04:09 12/18/18 04:09 12/18/18 04:09 Exam: xx - Assessment and Plan (1) Acute on chronic diastolic heart failure Current Visit: Yes Status: Acute (2) Elevated troponin Current Visit: Yes Status: Acute (3) CAD (coronary artery disease) Current Visit: Yes Status: Chronic (4) T2DM (type 2 diabetes mellitus) Current Visit: Yes Status: Acute (5) Hypertension Current Visit: No Status: Chronic (6) GERD (gastroesophageal reflux disease) Current Visit: Yes Status: Acute (7) Morbid obesity with BMI of 50.0-59.9, adult Current Visit: Yes Status: Chronic - Time Spent with Patient Total time spent is greater than 50% in coordination of care (as documented) at patient's floor/unit and/or counseling patient: 25 - 35 minutes Plan of Care Discussed with: patient (and family...) Internal Medicine: Result - Labs CBC & Chem 7: 12/17/18 05:35 12/17/18 05:35 Labs: Short CBC 12/17/18 Range/Units 05:35 WBC 7.7 (4.3-11.1) K/mcL Hgb 11.1 L (11.5-15.4) g/dL Hct 36.9 (35.3-44.9) % Plt Count 176 (140-400) K/mcL BMP 12/17/18 05:35 Sodium 142 Potassium 3.9 Chloride 103 Carbon Dioxide 30 H BUN 18 Creatinine 0.87 Glucose 141 H Calcium 9.5 Consult Discharge Plan - Plan Referrals: Michelle Silveira [Resident] - 12/22/18 10:20 am Edwige Woods [Partnered Physician] - (Office will call patient at home with follow up appointment) (3) CAD (coronary artery disease) Qualifiers: Coronary Disease-Associated Artery/Lesion type: [place] artery [place] vs. transplanted heart: [place] heart Associated angina: angina presence unspecified Qualified Code(s): I25.10 - Atherosclerotic heart disease of [place] coronary artery without angina pectoris (4) T2DM (type 2 diabetes mellitus) Qualifiers: Diabetes mellitus sales administration specialist insulin use: without [place] [facility] use Diabetes mellitus complication status: without complication Qualified Code(s): E11.9 - Type 2 diabetes mellitus without complications (5) Hypertension Qualifiers: Hypertension type: essential hypertension Qualified Code(s): I10 - Essential (primary) hypertension
[2018-12-18] MEDS: Insulin LISPRO 300 UNITS/3 ML VIAL SQ SCH ×2 (07:10→11:44)
[2018-12-18] MEDS: Aspirin 81 MG TAB.CHEW PO SCH (07:19)
[2018-12-18] MEDS: traMADol 50 MG TABLET PO PRN (07:19)
[2018-12-18] MEDS: ALPRAZolam 0.5 MG TABLET PO SCH (07:20)
[2018-12-18] MEDS: Gabapentin 300 MG CAPSULE PO SCH ×2 (07:20→15:36)
[2018-12-18] MEDS: Isosorbide MONOnitrate (24 HR) 30 MG TAB.ER.24H PO SCH (07:20)
[2018-12-18] MEDS: metOLazone 2.5 MG TABLET PO SCH ×2 (07:20→07:25)
[2018-12-18] MEDS ORDERED: Torsemide 20 MG TABLET PO SCH (09:00)
[2018-12-18 11:25] VITALS: BP 137/84
--- NOTE | 2018-12-18 14:30 | Discharge Summary ---
Date of Encounter: 12/18/18 Time of Encounter: 14:19 - Discharge Diagnosis (1) Acute on chronic diastolic heart failure Priority: Primary Status: Acute (2) Elevated troponin Priority: Secondary Status: Acute (3) CAD (coronary artery disease) Priority: Secondary Status: Chronic Qualifiers: Coronary Disease-Associated Artery/Lesion type: [place] artery [place] vs. 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 Loza is a 58 year old female Discharge discussed with: patient, nurse - Time Spent with Patient Total time spent providing and/or coordinating discharge services: Time spent: Greater than 30 minutes (40 minutes...) - Discharge Medications Prescriptions: New ALPRAZolam [Xanax 0.5 MG Tablet] 0.5 mg PO BID 5 Days #10 tablet Isosorbide MONOnitrate (24 HR) [Imdur] 30 mg PO DAILY #30 tab.er.24h metOLazone [Zaroxolyn] 2.5 mg PO QAM 30 Days #30 tablet Torsemide [Demadex] 40 mg PO QAM 30 Days #30 tablet Continue SitaGLIPtin [Januvia] 100 mg PO DAILY #0 Estradiol [Estrace] 1 mg PO DAILY Esomeprazole Magnesium [Nexium] 40 mg PO DAILY Atorvastatin [Lipitor] 40 mg PO HS #30 tablet Docusate Sodium [Dok] 100 mg PO DAILY GlipiZIDE XL (24 HR) [Glucotrol XL] 10 mg PO DAILY Losartan Potassium 100 mg PO DAILY PARoxetine HCl [Paroxetine HCl] 10 mg PO DAILY Trazodone HCl 100 mg PO HS Umeclidinium Peck [Incruse Ellipta] 1 puff IH DAILY Gabapentin [Neurontin] 600 mg PO TID Tramadol HCl [Ultram] 100 mg PO TID PRN PRN Reason: Pain Ipratropium/Albuterol Neb [Duoneb] 3 ml IH [id number] #[id number] inhsol Clopidogrel [Plavix] 75 mg PO DAILY #30 tablet Blood Pressure Test Kit [Blood Pressure Kit] 1 each BID #1 kit Nebulizer and Compressor [Ombra Compressor System] 1 each PRN PRN #1 each PRN Reason: Shortness Of Breath Aspirin [Lo-Dose Aspirin EC] 81 mg PO DAILY Carvedilol [Coreg] 25 mg PO BIDWM Losartan Potassium [Cozaar] 100 mg PO DAILY Discontinued Furosemide [Lasix] 40 mg PO DAILY Home Medications: Atorvastatin [Lipitor] 40 mg PO HS #30 tablet 05/14/16 [Rx] Esomeprazole Magnesium [Nexium] 40 mg PO DAILY 05/14/16 [History] Estradiol [Estrace] 1 mg PO DAILY 05/14/16 [History] SitaGLIPtin [Januvia] 100 mg PO DAILY #0 05/14/16 [History] Docusate Sodium [Dok] 100 mg PO DAILY 10/30/18 [History] Gabapentin [Neurontin] 600 mg PO TID 10/30/18 [History] GlipiZIDE XL (24 HR) [Glucotrol XL] 10 mg PO DAILY 10/30/18 [History] Losartan Potassium 100 mg PO DAILY 10/30/18 [History] PARoxetine HCl [Paroxetine HCl] 10 mg PO DAILY 10/30/18 [History] Tramadol HCl [Ultram] 100 mg PO TID PRN 10/30/18 [History] Trazodone HCl 100 mg PO HS 10/30/18 [History] Umeclidinium Peck [Incruse Ellipta] 1 puff IH DAILY 10/30/18 [History] Blood Pressure Test Kit [Blood Pressure Kit] 1 each BID #1 kit 11/01/18 [Rx] Clopidogrel [Plavix] 75 mg PO DAILY #30 tablet 11/01/18 [Rx] Ipratropium/Albuterol Neb [Duoneb] 3 ml IH [id number] #10 inhsol 11/01/18 [Rx] Nebulizer and Compressor [Ombra Compressor System] 1 each PRN PRN #1 each 11/01/18 [Rx] Aspirin [Lo-Dose Aspirin EC] 81 mg PO DAILY 12/16/18 [History] Carvedilol [Coreg] 25 mg PO BIDWM 12/16/18 [History] Losartan Potassium [Cozaar] 100 mg PO DAILY 12/16/18 [History] ALPRAZolam [Xanax 0.5 MG Tablet] 0.5 mg PO BID 5 Days #10 tablet 12/18/18 [Rx] Isosorbide MONOnitrate (24 HR) [Imdur] 30 mg PO DAILY #30 tab.er.24h 12/18/18 [Rx] Torsemide [Demadex] 40 mg PO QAM 30 Days #30 tablet 12/18/18 [Rx] metOLazone [Zaroxolyn] 2.5 mg PO QAM 30 Days #30 tablet 12/18/18 [Rx] Allergies/Adverse Reactions: Allergy/AdvReac Type Severity Reaction Status Date / Time steroids Allergy See Uncoded 10/30/18 10:48 Comments Date of admission: 12/15/18 17:50 Primary care physician: PCP NONE Consults: 12/15/18 12:54 PICC Consult [Consult to Invasive Line Access Team] [CONS] Stat Reason for Consult: no access Line Type: Midline 12/15/18 14:34 Consult to Invasive Line Access Team [CONS] Routine Reason for Consult: poor access Line Type: EPIV 12/15/18 15:12 Consult to Cardiology [CONS] Stat Comment: Consulting Provider: Cardiology Kate Reason for Consult: acute chf, hx known multivessel CAD with recent stent Call Completed: No 12/15/18 19:02 Consult to Risk Management Analyst [CONS] Routine Reason for SW Consult: may need home O2 set up 12/16/18 10:02 Consult to Cardiac Rehabilitation-Phase1 [CONS] Routine Comment: Reason for Consult: recent stenting, mild trop Call Completed: No 12/16/18 10:25 Consult to Nurse Navigator [CONS] Routine Comment: CHF Discharging clinician: Abundio Alejandro Anticipated date of discharge: 12/18/18 - Constitutional Vitals: Temp Pulse Resp BP Pulse Ox 98.5 F 82 17 137/84 93 12/18/18 11:24 12/18/18 11:24 12/18/18 11:24 12/18/18 11:24 12/18/18 11:24 General appearance: Present: A&O X 3, morbidly obese, no acute distress, answers questions appropriately Exam: xx - Patient Status Disposition: Home, Self-Care Condition: Fair Functional capacity at discharge: independent ambulation Overall status at discharge: patient is back to baseline - Discharge Instructions Follow Up With: Michelle Silveira [Resident] - 12/22/18 10:20 am Edwige Woods [Partnered Physician] - (Office will call patient at home with follow up appointment) - Diet and Activity Activity: increase activity as tolerated Diet: diabetic diet - VTE Reasons for not Prescribing Prophylaxis: Treatment not Indicated - Low risk for VTE
== END 2018-12-18 16:25 | disposition home or self-care (01) | DRG 291 ==
LOC: EMEROOARM 12:03 → 2NNU 17:50 → SUATTDRO 17:50 → 2NNU 18:06 → 2ANU 12-16 21:15
PROVIDERS: ADMIT Internal Medicine; ATTEND Internal Medicine

== ENCOUNTER 2021-02-18 21:22 | Observation (INO) ==
[2021-02-18] MEDS ORDERED: 0.9 % Sodium Chloride 250 ML IVC ONE (23:25)
[2021-02-18 23:38] LABS: VBG HCO3 26 mEq/L (21-27); VBG PCO2 50 mmHg (41-51); VBG PH 7.32 pH Units (7.32-7.42); VBG PO2 48 mmHg (25-50)
[2021-02-18 23:41] LABS: Basophils % 0.2 %; Eosinophils # 0.1 K/mcL (0.0-0.6); Eosinophils % 0.9 %; Hematocrit 41.4 % (35.3-44.9); Hemoglobin 12.5 g/dL (11.5-15.4); INR 1.1; Immature Granulocytes % 0.3 % (0-4); Lymphocytes # 1.3 K/mcL (0.6-4.6); Lymphocytes % 12.5 %; Mean Corpuscular HGB Conc 30.2 g/dL (31.6-35.5); Mean Corpuscular Hemoglobin 24.1 pg (28.0-33.3); Mean Corpuscular Volume 79.9 fL (83.0-100.0); Monocytes # 0.5 K/mcL (0.0-1.3); Monocytes % 4.9 %; Neutrophils # 8.4 K/mcL (1.6-8.9); Platelet Count 212 K/mcL (140-400); Prothrombin Time 13.2 Seconds (9.4-12.1); Red Blood Count 5.18 M/mcL (3.82-4.97); Red Cell Distribution Width 17.5 % (11.5-14.5); Segmented Neutrophils % 81.2 %; White Blood Count 10.3 K/mcL (4.3-11.1)
[2021-02-18 23:44] LABS: Activated Partial Thrombo Time 24.7 Seconds (26.0-36.0)
[2021-02-18 23:56] LABS: Alanine Aminotransferase 12 Units/L (7-52); Albumin 3.9 g/dL (3.5-5.7); Albumin/Globulin Ratio 1.1 (1.1-2.2); Alkaline Phosphatase 99 Units/L (34-104); Aspartate Amino Transferase 10 Units/L (13-39); BUN/Creatinine Ratio 16 (6-26); Bilirubin,Direct 0.1 mg/dL (0.0-0.2); Bilirubin,Indirect 0.4 mg/dL (0.0-1.0); Bilirubin,Total 0.5 mg/dL (0.3-1.0); Blood Urea Nitrogen 20 mg/dL (6-20); Calcium 10.1 mg/dL (8.6-10.3); Carbon Dioxide 24 mEq/L (23-29); Chloride 104 mEq/L (98-107); Globulin 3.5 g/dL (2.4-3.5); Glucose 156 mg/dL (70-105); Lipase 18 Units/L (11-82); Magnesium 1.3 mg/dL (1.6-2.6); Osmolality,Calculated 294 (280-300); Phosphorous 2.2 mg/dL (2.7-4.5); Potassium 3.8 mEq/L (3.5-5.1); Sodium 139 mEq/L (136-145); Total Protein 7.4 g/dL (6.4-8.9); Troponin I < 0.03 ng/mL (< 0.04); eGFR For African Americans 54 (> 60); eGFR For Non-African Americans 44 (> 60)
[2021-02-19 00:24] LABS: Bacteria,Urine Few per hpf (None-Few); Bilirubin,Urine Negative (Negative); Blood,Urine Negative (Negative); Clarity,Urine Turbid (Clear); Color,Urine Yellow (Yellow); Glucose,Urine (UA) Normal (Normal); Hyaline Casts,Urine Many per lpf (None Seen); Ketones,Urine Negative (Negative); Leukocyte Esterase,Urine Trace (Negative); Mucus,Urine Few per lpf (None-Few); Nitrite,Urine Negative (Negative); PH,Urine 5.5 pH Units (5.0-8.0); Protein,Urine 200 mg/dL (Neg-Trace); RBC,Urine 0-3 per hpf (0-3); Specific Gravity,Urine 1.026 (1.010-1.025); Squamous Epithelial Cell,Urine Few per hpf (None-Few)
[2021-02-19] MEDS ORDERED: Melatonin 3 MG TABLET PO PRN (02:38)
[2021-02-19] MEDS ORDERED: Naloxone 0.4 MG/ML INJ IVP PRN (02:38)
[2021-02-19] MEDS ORDERED: Ondansetron 4 MG/2 ML VIAL IVP PRN (02:38)
[2021-02-19] MEDS ORDERED: D5% in Water 1,000 ML IVC PRN (02:40)
[2021-02-19] MEDS ORDERED: *HR* Dextrose 50 % in Water (Vial) 50 ML VIAL IVP PRN (02:40)
[2021-02-19] MEDS ORDERED: Dextrose Gel 15 GM/37.5 ML TUBE PO PRN ×2 (02:40)
[2021-02-19 03:53] LABS: Eosinophils % 0.2 %; Immature Granulocytes % 0.3 % (0-4)
[2021-02-19 03:55] LABS: Basophils % 0.2 %; Hematocrit 39.7 % (35.3-44.9); Hemoglobin 12.1 g/dL (11.5-15.4); Immature Platelets 7.7 % (1.1-6.1); Lymphocytes % 14.9 %; Mean Corpuscular HGB Conc 30.5 g/dL (31.6-35.5); Mean Corpuscular Volume 78.6 fL (83.0-100.0); Monocytes # 0.4 K/mcL (0.0-1.3); Monocytes % 4.2 %; Platelet Count 173 K/mcL (140-400); Red Blood Count 5.05 M/mcL (3.82-4.97); Red Cell Distribution Width 17.5 % (11.5-14.5); Segmented Neutrophils % 80.2 %; White Blood Count 9.7 K/mcL (4.3-11.1)
[2021-02-19 03:56] LABS: Lymphocytes # 1.5 K/mcL (0.6-4.6); Neutrophils # 7.8 K/mcL (1.6-8.9)
[2021-02-19 04:16] LABS: Alanine Aminotransferase 12 Units/L (7-52); Albumin 3.8 g/dL (3.5-5.7); Albumin/Globulin Ratio 1.2 (1.1-2.2); Alkaline Phosphatase 94 Units/L (34-104); Aspartate Amino Transferase 9 Units/L (13-39); BUN/Creatinine Ratio 21 (6-26); Bilirubin,Total 0.5 mg/dL (0.3-1.0); Blood Urea Nitrogen 23 mg/dL (6-20); Calcium 9.7 mg/dL (8.6-10.3); Carbon Dioxide 22 mEq/L (23-29); Chloride 106 mEq/L (98-107); Globulin 3.3 g/dL (2.4-3.5); Glucose 122 mg/dL (70-105); Magnesium 1.4 mg/dL (1.6-2.6); Osmolality,Calculated 293 (280-300); Phosphorous 3.2 mg/dL (2.7-4.5); Potassium 4.1 mEq/L (3.5-5.1); Sodium 139 mEq/L (136-145); Total Protein 7.1 g/dL (6.4-8.9); Troponin I < 0.03 ng/mL (< 0.04); eGFR For African Americans > 60 (> 60); eGFR For Non-African Americans 50 (> 60)
[2021-02-19] MEDS: *HR* Heparin 5,000 UNIT/ML VIAL SQ SCH ×2 (05:51→18:19)
[2021-02-19] MEDS ORDERED: Insulin LISPRO 300 UNITS/3 ML VIAL SUBQ SCH ×2 (06:00→21:00)
[2021-02-19] MEDS: Insulin LISPRO 300 UNITS/3 ML VIAL SUBQ SCH ×3 (08:32→16:37)
[2021-02-19] MEDS: Acetaminophen 325 MG TABLET PO PRN ×2 (11:31→20:43)
[2021-02-19] MEDS ORDERED: Perflutren Lipid Microsphere 1.3 ML in 0.9 % Sodium Chloride 8.7 ML IVP PRN (12:52)
[2021-02-19] MEDS: Gabapentin 300 MG CAPSULE PO SCH ×2 (15:11→20:43)
[2021-02-19] MEDS: Nicotine 14 MG PATCH.TD24 TD SCH (15:36)
[2021-02-19] MEDS: carvediloL 25 MG TABLET PO SCH (16:40)
[2021-02-19] MEDS ORDERED: traZODone 50 MG TABLET PO SCH (21:00)
[2021-02-20 02:50] LABS: Mean Corpuscular HGB Conc 29.1 g/dL (31.6-35.5)
[2021-02-20 02:52] LABS: Basophils % 0.4 %; Eosinophils # 0.1 K/mcL (0.0-0.6); Eosinophils % 1.6 %; Hematocrit 42.9 % (35.3-44.9); Hemoglobin 12.5 g/dL (11.5-15.4); Immature Granulocytes % 0.3 % (0-4); Immature Platelets 5.6 % (1.1-6.1); Lymphocytes # 2.2 K/mcL (0.6-4.6); Lymphocytes % 29.1 %; Mean Corpuscular Hemoglobin 23.6 pg (28.0-33.3); Mean Corpuscular Volume 80.9 fL (83.0-100.0); Monocytes # 0.4 K/mcL (0.0-1.3); Monocytes % 5.4 %; Neutrophils # 4.9 K/mcL (1.6-8.9); Platelet Count 165 K/mcL (140-400); Red Cell Distribution Width 18.2 % (11.5-14.5); Segmented Neutrophils % 63.2 %; White Blood Count 7.7 K/mcL (4.3-11.1)
[2021-02-20 03:13] LABS: BUN/Creatinine Ratio 28 (6-26); Blood Urea Nitrogen 27 mg/dL (6-20); Calcium 9.8 mg/dL (8.6-10.3); Carbon Dioxide 23 mEq/L (23-29); Chloride 106 mEq/L (98-107); Glucose 149 mg/dL (70-105); Osmolality,Calculated 296 (280-300); Sodium 139 mEq/L (136-145); eGFR For African Americans > 60 (> 60); eGFR For Non-African Americans 59 (> 60)
[2021-02-20] MEDS: *HR* Heparin 5,000 UNIT/ML VIAL SQ SCH ×2 (06:04→16:17)
[2021-02-20] MEDS ORDERED: *HR* GlipiZIDE XL (24 HR) 10 MG TABLET PO SCH (09:00)
[2021-02-20] MEDS ORDERED: Isosorbide MONOnitrate (24 HR) 30 MG TAB.ER.24H PO SCH (09:00)
[2021-02-20] MEDS ORDERED: Multivit/Ca/Min/Fe/FA 1 TAB TABLET PO SCH (09:00)
[2021-02-20] MEDS ORDERED: Aspirin Enteric Coated 81 MG Tablet PO SCH (09:00)
[2021-02-20] MEDS: Gabapentin 300 MG CAPSULE PO SCH ×2 (09:27→14:44)
[2021-02-20] MEDS: Acetaminophen 325 MG TABLET PO PRN (09:27)
[2021-02-20] MEDS: carvediloL 25 MG TABLET PO SCH ×2 (09:28→16:16)
[2021-02-20] MEDS: Nicotine 14 MG PATCH.TD24 TD SCH (09:28)
[2021-02-20] MEDS: Insulin LISPRO 300 UNITS/3 ML VIAL SUBQ SCH ×3 (09:35→16:16)
[2021-02-20 11:18] LABS: Thyroid Stimulating Hormone 0.785 mcIU/mL (0.340-5.600)
[2021-02-20 14:43] VITALS: BP 115/79
== END 2021-02-20 17:13 | disposition home or self-care (01) ==
LOC: 2ANU 21:22 → EMEROOARM 21:22 → SUATTDRO 02-19 01:46 → 2ANU 02-19 02:30
PROVIDERS: ADMIT Family Medicine; ATTEND Internal Medicine